=== PATIENT | female | born 1965 ===

== ENCOUNTER 2018-07-26 07:24 | Emergency (ER) | payer BC ==
[2018-07-26 07:32] VITALS: BP 140/91; PULSE 81; RESP 18; TEMP 97; O2SAT 98; BMI 33.5
[2018-07-26] MEDS ORDERED: DiphenhydrAMINE 50 mg/ml Inj IM STA (08:20)
--- NOTE | 2018-07-26 09:32 | ED PDOC ---
HPI: Skin/Bite Injury Time Seen by Provider: 07/26/18 08:08 Chief Complaint (Nursing): Abnormal Skin Integrity Chief Complaint (Provider): Rash History Per: Patient History/Exam Limitations: no limitations Onset/Duration Of Symptoms: Days (x4) Current Symptoms Are (Timing): Still Present Location Of Injury: Right: Arm Additional Complaint(s): 53 year old female presents to the ED complaining of rash on her right arm since Saturday. On Saturday, patient gave blood at a blood drive from the right arm and a paper tape was placed. Where tape was, a rash appeared which patient states is very itchy. Rash became slowly bigger but is confined to the area of the tape. Denies pain, swelling, or fever. Patient states she applied Hydrocortisone and took Benadryl without relief. PMD: Iris Rhodes Past Medical History Reviewed: Historical Data, Nursing Documentation, Vital Signs Vital Signs: Last Vital Signs Temp 97 F L 07/26/18 07:48 Pulse 81 07/26/18 07:48 Resp 18 07/26/18 07:48 BP 140/91 H 07/26/18 07:31 Pulse Ox 98 07/26/18 07:48 - Medical History PMH: Back Problems, HTN, Kidney Stones - Surgical History Surgical History: Appendectomy, Cholecystectomy, Other surgeries: Back surgery - Family History Family History: States: Unknown Family Hx - Home Medications Home Medications: Ambulatory Orders Medication Instructions Recorded Olmesartan Medoxomil [Benicar] 40 mg PO DAILY 10/03/15 Famotidine [Pepcid] 1 tab PO BID #10 tab 08/26/16 Hydroxyzine Pamoate [Vistaril] 1 - 2 tab PO Q6 PRN #36 capsule 08/26/16 RX: predniSONE [predniSONE Tab] 3 tab PO DAILY #12 tab 08/26/16 RX: Prednisone 50 mg PO DAILY #5 tablet 07/26/18 hydrOXYzine HCl [Atarax] 25 mg PO Q6H PRN #20 tab 07/26/18 - Allergies Allergies/Adverse Reactions: Allergies Allergy/AdvReac Type Severity Reaction Status Date / Time ciprofloxacin [From Cipro] Allergy SWELLING Verified 08/26/16 18:35 ciprofloxacin HCl Allergy SWELLING Verified 08/26/16 18:35 [From Cipro] Penicillins Allergy SWELLING Verified 08/26/16 18:35 Review of Systems ROS Statement: Except As Marked, All Systems Reviewed And Found Negative Constitutional: Negative for: Fever Skin: Positive for: Rash (itchy without pain or swelling) Physical Exam - Reviewed Nursing Documentation Reviewed: Yes Vital Signs Reviewed: Yes - Physical Exam Appears: Positive for: Non-toxic, No Acute Distress. Negative for: Uncomfortable Head Exam: Positive for: ATRAUMATIC, NORMOCEPHALIC Skin: Positive for: Normal Color, Warm, Dry Eye Exam: Positive for: Normal appearance Neck: Positive for: Normal, Painless ROM Cardiovascular/Chest: Positive for: Regular Rate, Rhythm Respiratory: Positive for: Normal Breath Sounds. Negative for: Wheezing, Respiratory Distress Extremity: Positive for: Normal ROM, Other (Right arm: Limited well demarcated area of erythema; no pustules, vesicles, discharge, swelling, or warmth at antecubital area; joint is normal) Neurologic/Psych: Positive for: Alert, Oriented. Negative for: Motor/Sensory Deficits - ECG O2 Sat by Pulse Oximetry: 98 (RA) Pulse Ox Interpretation: Normal Medical Decision Making Medical Decision Making: Initial Impression: rash Differential: allergic dermatitis, contact dermatitis, less likely cellulitis Initial Plan: Benadryl 25mg IM Scribe Attestation: Documented by Collin Hicks acting as a scribe for Adrien Solomon MD. Provider Scribe Attestation: All medical record entries made by the Scribe were at my direction and personally dictated by me. I have reviewed the chart and agree that the record accurately reflects my personal performance of the history, physical exam, medical decision making, and the department course for this patient. I have also personally directed, reviewed, and agree with the discharge instructions and disposition. Disposition - Clinical Impression Clinical Impression: Rash - Patient ED Disposition Is Patient to be Admitted: No Doctor Will See Patient In The: Office Counseled Patient/Family Regarding: Studies Performed, Diagnosis, Need For Followup - Disposition Referrals: Iris Rey MD [Family Provider] - Disposition: Routine/Home Disposition Time: 09:00 Condition: GOOD Additional Instructions: Return for recheck in 24-48 hours. GABRIELLA FAIR, thank you for letting us take care of you today. Your provider was Adrien Solomon MD and you were treated for RT HAND RASH. The emergency medical care you received today was directed at your acute symptoms. If you were prescribed any medication, please fill it and take as directed. It may take several days for your symptoms to resolve. Return to the Emergency Department if your symptoms worsen, do not improve, or if you have any other problems. Please contact your doctor or call one of the physicians/clinics you have been referred to that are listed on the Patient Visit Information form that is included in your discharge packet. Bring any paperwork you were given at discharge with you along with any medications you are taking to your follow up visit. Our treatment cannot replace ongoing medical care by a primary care provider outside of the emergency department. Thank you for allowing the [facility] team to be part of your care today. If you had an X-Ray or CT scan: A Radiologist will review the ED reading if any change in treatment is needed we will contact you. If you had a blood, urine, or wound culture: It will take several days for the results, if any change in treatment is needed we will contact you. If you had an STI test: It will take 48 hours for the results. Please call after 1 week if you have not heard back. Prescriptions: hydrOXYzine HCl [Atarax] 25 mg PO Q6H PRN #20 tab PRN Reason: Itching / Pruritus RX: Prednisone 50 mg PO DAILY #5 tablet Instructions: Skin Rash (DC) Forms: [facility] ([place]
== END 2018-07-26 09:39 | disposition home or self-care (01) ==
LOC: H.ER 07:24
DX: R21 Rash and other nonspecific skin eruption (principal); I10 Essential (primary) hypertension; Z87.442 Personal history of urinary calculi; Z88.0 Allergy status to penicillin
CPT/HCPCS: 96372; 99283; J1200